=== PATIENT | female | born 1985 | race Caucasian/White ===

== ENCOUNTER → 2021-08-21 | Day surgery (SDC) | payer OTHER ==
[~2021-08-21] VITALS: Ht 162.6 cm; Wt 83.0 kg
[~2021-08-21] MED LIST: KETOROLAC TROME10 MG PO; NORCO 5-325 TA1 EACH PO; NORCO 5/3251 EACH PO; ONDANSETRON4 MG/2 M2 PO; PRENATAL VITAM1 EAC2 PO
[2021-08-21 07:29] LABS: HCG (URINE) SCREEN NEGATIVE (NEGATIVE)
[2021-08-21 07:55] LABS: HCT 37.9 % (37.0-47.0); HGB 12.1 g/dl (12.5-16.0); MCH 27.7 pg (25.0-31.0); MCHC 31.9 g/dL (32.0-36.0); MCV 86.7 fL (78.0-100.0); MPV 10.6 fL (6.0-9.5); RBC 4.37 M/uL (4.20-5.40); WBC 7.1 K/uL (4.0-10.5)
== END | disposition home or self-care (01) ==
LOC: FAS 06:59
PROVIDERS: Specialist
DX: N83.8 Other noninflammatory disorders of ovary, fallopian tube and broad ligament (principal); N73.6 Female pelvic peritoneal adhesions (postinfective); N92.1 Excessive and frequent menstruation with irregular cycle; E66.9 Obesity, unspecified; R73.03 Prediabetes; Z90.49 Acquired absence of other specified parts of digestive tract
CPT/HCPCS: 36415; 84703; 86850; 86900; 86901; J0690; J1170; J1885; J2250; J2405; J2704; J2710; J3010; J7120; Q9968